=== PATIENT | female | born 1960 | race African-American/Black ===

== ENCOUNTER 2018-04-09 13:34 | Emergency (ER) | payer MEDICAID ==
[~2018-04-09] VITALS: Ht 170.2 cm; Wt 85.0 kg
[2018-04-09] MEDS ORDERED: IBUPROFEN 600MG TABLET PO ONE (15:30)
[2018-04-09 16:59] VITALS: BP 169/80
== END 2018-04-09 17:00 | disposition home or self-care (01) ==
LOC: ER 13:34
DX: S16.1XXA Strain of muscle, fascia and tendon at neck level, initial encounter (principal); M25.511 Pain in right shoulder; I10 Essential (primary) hypertension; J45.909 Unspecified asthma, uncomplicated; V43.62XA Car passenger injured in collision with other type car in traffic accident, initial encounter; Y93.89 Activity, other specified; Y92.488 Other paved roadways as the place of occurrence of the external cause
CPT/HCPCS: 72040; 73030; 99283